=== PATIENT | female | born 1985 | race Asian ===

== ENCOUNTER 2019-03-06 05:17 | Inpatient (IN) | payer BC ==
[2019-03-06] MEDS ORDERED: Lactated Ringers 1000 ML Bag* 1,000 ML IV ONE (06:04)
--- NOTE | 2019-03-06 06:17 | HP ---
General Information - Reason for Visit IUP at 39-10/22 with ruptured membranes in early labor, GBS + - General Information Maternal Age: 33 Grav: 1 Para: 0 SAB: 0 IEA: 0 Estimated Due Date: 03/08/19 Determined By: LMP Gestational Age in Weeks/Days: 39-57 Maternal Blood Type and Rh: O Positive - Results this Serology/RPR Result: Non-Reactive Rubella Result: Immune HBsAg Result: Negative HIV Result: Negative GBS Culture Result: Positive Past Medical History Delivery History: See Records Delivery History Comment: Primip Pertinent Past Medical History: Non-Contributory Pertinent Past Surgical History: None Pertinent Family History: Non-Contributory - Antepartal Records Antepartal Records: Reviewed, Complicated by: - GBS+ Review of Systems Constitutional: Uncomfortable - with UCs CV Complaint: No Respiratory: Shortness of Breath: No Gastrointestinal: No Nausea/Vomiting, Normal Bowel Movement Genitourinary: Leaking Fluid - ROM+ positive, No Dysuria, No Bleeding Musculoskeletal: Contractions Neurological: No Headache, No Visual Changes Movement: Normal Exam Allergies/Adverse Reactions: Allergies No Known Allergies Allergy (Verified 03/06/19 05:39) Vital Signs 03/06/19 05:57 Temperature 98.7 F Pulse Rate 93 Respiratory 20 Rate Blood Pressure 118/79 (mmHg) O2 Sat by Pulse 100 Oximetry Lab Values - Entire Visit: Laboratory Tests 03/06/19 05:35 Vag Amniotic Fld Detect Positive - Measurements Height: 5 ft 2 in Weight: 142 lb Weight in lbs: 142.796812 Body Mass Index (BMI): 25.9 Pre- Weight: 100 lb Weight Gained This : 42 lbs and 0 ozs - Exam Breast: Breast Exam Deferred CVA: No CVA Tenderness Extremities: No Edema Heart: Normal Rhythm/Heart Sounds HEENT: No Significant Findings Lungs: Clear Bilaterally Rectal: Rectal Exam Deferred Reflexes: DTR 2+ Thyroid: No Thyromegaly - Abdominal Exam Abdomen Exam: Non-Tender, Fundal Height Consistent with Dates - Ultrasound/Biophysical Profile Ultrasound Status: Not Done Targeted Exam Findings See L&D Outpatient Visit Provider Note for Findings: N/A Estimated Weight: EFW 7lbs by Lars Cervical Exam: 1cm, 2cm Effacement: 70% Station: -1 Presenting Part: Vertex Membrane Status: Leaking Amniotic Fluid Evaluation: Positive ROM Plus Sterile Speculum Exam: Not done Bleeding/Discharge: Bloody Show EFM Findings - External Monitor Findings Baseline Heart Rate: 130 External Monitor Findings: Accelerations Present, No Pattern of Variable or Late Decelerations, Variability Moderate, Baseline Stable External Monitor Findings Comment: No evidence of metabolic acidemia Contractions: Regular, Moderate Contraction Frequency: q 2-5 Assessment/Plan - Assessment IUP at 39-5/7 in latent labor with ruptured membranes No evidence of metabolic acidemia GBS + - Obstetrical Risk Factors Obstetrical Risk Factors: GBS Positive - Plan Plan: Admit - Anticipate Vaginal Delivery Plan Comment: Counseled for antibiotic prophylaxis in labor for GBS. Pt and FOB agree. Will continue to monitor for now in presence of increasing strength and frequency of UCs. Advised if no onset of active labor in several hours will recommend labor augmentation with IV pitocin in presence of GBS. Pt and FOB agree. Report to Rea Garcia CNM who will be assuming care at 0800 - Date/Time of Admission Date of Admission: 03/06/19 Time of Admission: 06:04
[2019-03-06] MEDS ORDERED: Penicillin G Potassium IV* 5,000,000 UNITS in NS 0.9% 100 ML* 100 ML IVPB ONE (06:30)
[2019-03-06 06:38] LABS: ABS Eosinophils 0.1 10^3/ul (0-0.6); ABS Lymphocytes 2.1 10^3/ul (1.0-4.8); ABS Monocytes 0.7 10^3/ul (0-0.8); ABS Neutrophils 7.1 10^3/ul (1.5-7.7); Eosinophil % 0.5 %; Hematocrit 37 % (35-47); Hemoglobin 12.6 g/dL (12.0-16.0); Lymphocyte % 20.8 %; Mean Corpuscular HGB Conc 34 g/dL (31-36); Mean Corpuscular Hemoglobin 33 pg (27-31); Mean Corpuscular Volume 95 fL (80-97); Mean Platelet Volume 8.6 fL (7.4-10.4); Nucleated Red Blood Cells % 0.1; Platelet Count 191 10^3/uL (150-450); Red Blood Count 3.85 10^6 /uL (3.70-4.87); Red Cell Distribution Width 15 % (10-15)
[2019-03-06 06:58] LABS: Urine Benzodiazepine Screen None Detected (None Detect); Urine Opiates Screen None Detected (None Detect)
--- NOTE | 2019-03-06 08:30 | PN ---
Progress Note - Progress Note Date of Service: 03/06/19 Note: S: Reports contractions still continuing, wincing through them but bearable for now O: B/P: 115/69, P: 85, T: 98.7 FHR: 140s by intermittent auscultation UCs: q 3-5 min, mild to palpation VE: 1.5/70/-1. Small bloody show and clear fluid ABX x 1 for GBS prophylaxis A: IUP at 39 5/7 weeks No evidence of metabolic acidemia GBS positive P: Discussed starting IV pitocin after breakfast, PARQ discussion and Renetta agrees to trial Continue GBS prophylaxis per protocol Temperatures q2h Reassess PRN Anticipate SVB
[2019-03-06] MEDS: Oxytocin in LR* 20 UNITS/1,000 ML BAG IVPB SCH (09:14)
[2019-03-06] MEDS: Penicillin G Potassium IV* 2,500,000 UNITS in NS 0.9% 100 ML* 100 ML IVPB SCH ×4 (11:02→23:09)
--- NOTE | 2019-03-06 12:42 | PN ---
Progress Note - Progress Note Date of Service: 03/06/19 Note: S: Resting in bed, feels UCs are about the same strength as before O: B/P 116/70, P: 87, R: 18, T: 99.0 FHR: baseline 135, moderate variability, +accelerations, no decelerations UCs: q2-6 min, mild to palpation VE deferred, clear fluid Pitocin at 8 mu/min A: IUP at 39 5/7 weeks Category I FHR, no evidence of metabolic acidemia P: Continue to titrate Pitocin per protocol Continue prophylaxis for GBS Encouraged ambulation and position changes, ball Reassess PRN Anticipate SVB
[2019-03-06] MEDS ORDERED: Sodium Citrate/Citric Acid* 15 ML UDC PO ONE (18:36)
[2019-03-06] MEDS ORDERED: Morphine PF AMP (0.5MG/ML)* 5 MG/10 ML AMP ONE (18:54)
[2019-03-06] MEDS ORDERED: OXYTOCIN* 10 UNITS/ML 1 ML VIAL ONE (18:57)
[2019-03-06] MEDS ORDERED: Ketorolac INJ* 30 MG/ML 1 ML VIAL ONE (18:57)
[2019-03-06] MEDS ORDERED: Phenylephrine 40 MCG/ML SYRINGE ONE (18:57)
[2019-03-06] MEDS ORDERED: Ondansetron INJ* 2 MG/ML VIAL ONE (18:57)
[2019-03-06] MEDS ORDERED: Nalbuphine* 10 MG/ML 1 ML VIAL IV PRN ×3 (19:35→23:16)
[2019-03-06] MEDS ORDERED: Promethazine INJ(RESTRICTED)* 25 MG/ML 1 ML VIAL IV PRN (19:35)
--- NOTE | 2019-03-06 19:35 | PN ---
Progress Note - Progress Note Date of Service: 03/06/19 Note: S: Contractions have gotten stronger, reports a larger gush of fluid followed by increased discomfort. Wondering about pain management options. O: B/P: 108/65, P: 72, R: 18, T: 98.5 FHR: baseline 140, moderate variability, +accelerations, two decelerations UCs: q3-5 min, mild-moderate to palpation VE: 2/80/-2 (checked at 1700) A: IUP at 39 5/7 weeks Doubt metabolic acidemia GBS positive P: Discussed nubain/phenergan for therapeutic rest Continue GBS prophylaxis per protocol and q2h temps Reassess PRN Anticipate SVB
[2019-03-06] MEDS ORDERED: EPHEDrine (Pressors)* 50 MG/ML VIAL ONE (19:51)
[2019-03-06] MEDS ORDERED: DiMENhydriNATE IV* 50 MG/ML VIAL ONE (20:20)
[2019-03-06] MEDS ORDERED: Acetaminophen IV 1GM/100ML * 1,000 MG/100 ML VIAL IVPB ONE (20:21)
[2019-03-06] MEDS ORDERED: Naloxone* 0.4 MG/ML 1 ML VIAL IV PRN ×2 (20:21→20:22)
[2019-03-06] MEDS ORDERED: DiMENhydriNATE IV* 50 MG/ML VIAL IV PUSH PRN (20:21)
[2019-03-06] MEDS ORDERED: HYDROmorphone INJ1* 1 MG/ML SYRINGE IV PRN (20:21)
[2019-03-06] MEDS ORDERED: Ondansetron INJ* 2 MG/ML VIAL IV PRN (20:22)
[2019-03-06] MEDS ORDERED: HYDROmorphone INJ* 0.5 MG/0.5 ML SYRINGE IV PRN (21:00)
--- NOTE | 2019-03-06 23:04 | PN ---
Progress Note - Progress Note Date of Service: 03/06/19 Note: S: Feeling more uncomfortable, breathing through contractions O: B/P: 108/65, P: 72, T: 98.5 FHR: 130s by intermittent auscultation UCs: q 4-5 min, mild-moderate to palpation VE deferred ROM x 18.5 hr A: IUP at 39 5/7 weeks No evidence of metabolic acidemia P: Discussed options for pain management, she declines at this time Reassess PRN Anticipate SVB
[2019-03-07] MEDS ORDERED: Ketorolac INJ* 30 MG/ML 1 ML VIAL IV SCH (01:30)
[2019-03-07] MEDS: Penicillin G Potassium IV* 2,500,000 UNITS in NS 0.9% 100 ML* 100 ML IVPB SCH ×4 (03:09→15:14)
--- NOTE | 2019-03-07 04:10 | PN ---
Progress Note - Progress Note Date of Service: 03/07/19 Note: S: Called to bedside as Renetta reports being "in constant pain" and desires cervical exam O: B/P: 108/65, P: 72, R: 20, T: 98.7 FHR: baseline 135, moderate variability, no accelerations, no decelerations UCs: q4-6 min, moderate, uterine irritability VE: 2.5/100/-1, clear fluid ROM x 23.5 hr A: IUP at 39 6/7 weeks no evidence of metabolic acidemia Early labor P: Discussed pain management options including nitrous oxide and epidural; Renetta declines all Pitocin re-started for inadequate labor progress Continue GBS prophylaxis per protocol Continue q2h temperatures Reassess PRN Anticipate SVB
--- NOTE | 2019-03-07 08:41 | PN ---
Progress Note - Progress Note Date of Service: 03/07/19 Note: S: Pt resting in bed. Breathing through contractions. O: B/P: 118/73, P: 94, R: 20, T: 99.8 FHR: baseline 140, moderate variability, no accelerations, no decelerations UCs: q2-4 min, moderate, coupling VE: 5/100/-1, bloody show ROM x 28 hr Pitocin@10mU A: IUP at 39 6/7 weeks no evidence of metabolic acidemia active labor P: Move rooms so pt can use tub Increase pitocin based on /maternal tolerance and contraction pattern Continue GBS prophylaxis per protocol Continue q2h temperatures Reassess PRN Anticipate SVB
[2019-03-07] MEDS ORDERED: OBEPIDURAL* 250 ML EPIDURAL ONE (10:36)
--- NOTE | 2019-03-07 10:46 | PN ---
Progress Note - Progress Note Date of Service: 03/07/19 Note: S: Pt resting in bed. Using nitrous oxide with little effect. Requesting an epidural. O: B/P: 118/68, P: 98, R: 20, T: 98 FHR: baseline 140, moderate variability, no accelerations, no decelerations UCs: q2-4 min, moderate, VE: 7/100/-1 ROM x 30 hr Pitocin@10mU A: IUP at 39 6/7 weeks no evidence of metabolic acidemia afebrile active labor P: Pitocin stable Epidural now, anesthesia aware. Continue GBS prophylaxis per protocol Continue q2h temperatures Reassess PRN Anticipate SVB
[2019-03-07] MEDS ORDERED: Nalbuphine* 10 MG/ML 1 ML VIAL IV PRN (11:28)
[2019-03-07] MEDS ORDERED: Famotidine TAB* 20 MG PO PRN (11:35)
[2019-03-07] MEDS ORDERED: Lactated Ringers 1000 ML Bag* 500 ML IV PRN ×2 (11:35)
[2019-03-07] MEDS ORDERED: Lactated Ringers 1000 ML Bag* 1,000 ML IV ONE (11:35)
[2019-03-07] MEDS ORDERED: Phenylephrine 40 MCG/ML SYRINGE IV PUSH PRN ×2 (11:35)
[2019-03-07] MEDS ORDERED: Sodium Citrate/Citric Acid* 15 ML UDC PO PRN (11:35)
[2019-03-07] MEDS ORDERED: Lactated Ringers 1000 ML Bag* 1,000 ML IV SCH ×2 (12:00→19:00)
[2019-03-07] MEDS ORDERED: OBEPIDURAL* 250 ML EPIDURAL SCH (12:00)
[2019-03-07] MEDS: Oxytocin in LR* 20 UNITS/1,000 ML BAG IVPB SCH (12:11)
[2019-03-07] MEDS ORDERED: Ondansetron INJ* 2 MG/ML VIAL IV PRN (13:52)
[2019-03-07] MEDS ORDERED: Ondansetron INJ* 2 MG/ML VIAL ONE (13:55)
--- NOTE | 2019-03-07 14:15 | PN ---
Progress Note - Progress Note Date of Service: 03/07/19 Note: S: Pt resting in bed. Pain much improved with epidural. Feeling shaky and pressure. O: FHR: baseline 150, moderate variability, no accelerations, no decelerations UCs: palpate strong, good resting tone VE: 9/100/-1 ROM x 32hr Pitocin@10mU A: IUP at 39 6/7 weeks no evidence of metabolic acidemia active labor P: Pitocin stable Continue GBS prophylaxis per protocol Continue q2h temperatures Reassess PRN Anticipate SVB
--- NOTE | 2019-03-07 14:17 | PN ---
Progress Note - Progress Note Date of Service: 03/07/19 Note: S: Pt resting in bed. Pt feeling increased pressure. Also reports nausea. O: FHR: baseline 150, moderate variability, no accelerations, no decelerations UCs: palpate strong, good resting tone VE: 9.5/100/-1, anterior lip Pitocin@10mU A: IUP at 39 6/7 weeks no evidence of metabolic acidemia active labor P: Pitocin stable Continue GBS prophylaxis per protocol Continue q2h temperatures Reassess 30 mins Anticipate SVB
[2019-03-07] MEDS ORDERED: Bupivacaine 0.25% SDV PF* 10 ML VIAL INJ ONE (16:55)
[2019-03-07] MEDS ORDERED: Glycerin ADULT SUPP PR PRN (18:01)
[2019-03-07] MEDS ORDERED: Acetaminophen TAB* 325 MG PO PRN (18:01)
[2019-03-07] MEDS ORDERED: Misoprostol TAB* 200 MCG PR ONE (18:01)
[2019-03-07] MEDS ORDERED: Acetaminophen TAB* 325 MG ONE (18:15)
[2019-03-07] MEDS ORDERED: Ibuprofen TAB* 600 MG ONE (18:17)
[2019-03-07] MEDS: Ibuprofen TAB* 600 MG PO SCH (18:19)
[2019-03-07] MEDS ORDERED: Oxytocin in LR* 20 UNITS/1,000 ML BAG IVPB SCH (19:00)
[2019-03-07] MEDS ORDERED: Ammonia Inhalant* 1 EA AMP ONE ×2 (20:57→22:46)
[2019-03-07] MEDS ORDERED: Simethicone TAB* 80 MG TAB.CHEW PO SCH (21:00)
[2019-03-07 21:18] LABS: Hematocrit 24 % (35-47); Hemoglobin 8.1 g/dL (12.0-16.0); Mean Corpuscular HGB Conc 34 g/dL (31-36); Mean Corpuscular Hemoglobin 32 pg (27-31); Mean Corpuscular Volume 96 fL (80-97); Platelet Count 163 10^3/uL (150-450); Red Blood Count 2.51 10^6 /uL (3.70-4.87); Red Cell Distribution Width 15 % (10-15); White Blood Count 21.7 10^3/uL (3.5-10.8)
[2019-03-07] MEDS: Witch Hazel PAD* JAR TOPICAL PRN (21:25)
[2019-03-07] MEDS: Dibucaine 1% 28.35 GM TUBE PR PRN (21:25)
[2019-03-07 21:51] LABS: ABS Lymphocytes 2.2 10^3/ul (1.0-4.8); ABS Monocytes 1.9 10^3/ul (0-0.8); ABS Neutrophils 17.5 10^3/ul (1.5-7.7); Lymphocyte % 10.3 %
--- NOTE | 2019-03-07 23:04 | PROCNOTE ---
[facility] OB: Delivery Note - Delivery A Date of : 03/07/19 Time of : 16:50 [place] Sex: Male Weight at : 4070 lb Score 1 Minute: 1 Score 5 Minutes: 9 Gestational Age in Weeks and Days at Delivery: 39 Weeks and 6 Days Delivery Method: Spontaneous Vaginal Labor: Spontaneous Did Patient attempt ?: N/A, No Previous Amniotic Fluid: Clear Estimated Blood Loss: 1,000 Anesthesia/Analgesia: IM/IV, CEI for Labor, Nitrous-Labor Delivered By: Chely Moss - Nursery Level of Nursery: Regular/Bedside - Perineum Perineal Injury: Midline Episiotomy, 2nd Degree Perineal Injury Comment: Repaired in the usual fashion using 3-0 rapide with CEI infusing. Perineal Repair: By Delivering Practioner - Events Delivery Events of Note: Pitocin During Labor, Shoulder Dystocia, Supplemental O2 to Mother, Maternal Temperature during Labor, Full Course of Antibiotics, Post- Bleeding - Meds Given - Risk for Falls Delivered OB Patient- Risk for Falls: Heavy Bleeding Fall Risk: Patient is at High Risk for Falls - Additional Delivery Notes Additional Delivery Notes: 33 yo G1, now P1 at 39+3 weeks admitted to L&D for PROM at 0430 on 03/06/19. In the absence of labor contractions, labor was induced with Pitocin. Pt progressed to complete and complete with CEI infusing on 03/07/19. Pt began pushing spontaneously at 1450. After 2 hours of pushing, with strong maternal effort, the head was delivered OA to ADI. A nuchal cord was identified and reduced on the perineum. Shoulder dystocia was diagnosed when shoulders failed to deliver following restitution, gentle traction, and strong maternal pushing effort. RN activated emergency response on the unit. Meg Spencer MD - OB and Marta Almonte MD - Plant Ecologist were called and notified of events. The following maneuvers were performed: Mignon, suprapubic pressure, midline episiotomy, attempted removal of the posterior arm, rotation of the shoulder, and rotation to hands and knees where the posterior arm was successfully removed and the body delivered. The time lapsed from delivery of the head to delivery of the body was 2 minutes 57 seconds. Denisha Corona LM was present at the bedside and assisted with delivery. Cord was immediately cut and clamped and baby was taken to the warmer. 's were 1 and 9. After baby was stabilized, he was returned to mother's chest for [id number]. Spontaneous dorian delivery of intact placenta noted at 1655. Brisk bleeding followed. Fluids were initiated, followed by Pitocin and misoprostol. Fundus firmed with massage/meds and bleeding ceased. EBL 1000 mL. The midline episiotomy with extension was repaired in the usual fashion by the delivering provider. Normal anatomy restored, hemostasis achieved. Infant . Mother and infant in stable condition at time of note.
[2019-03-08] MEDS: Ibuprofen TAB* 600 MG PO SCH ×2 (09:11→21:34)
[2019-03-08] MEDS: Ferrous Gluconate TAB* 324 MG TAB PO SCH ×2 (09:12→21:34)
[2019-03-08] MEDS: Docusate CAP* 100 MG PO SCH ×3 (09:12→21:34)
[2019-03-08 10:35] LABS: ABS Eosinophils 0.1 10^3/ul (0-0.6); ABS Lymphocytes 2.3 10^3/ul (1.0-4.8); ABS Neutrophils 14.3 10^3/ul (1.5-7.7); Eosinophil % 0.3 %; Hematocrit 20 % (35-47); Hemoglobin 6.7 g/dL (12.0-16.0); Lymphocyte % 12.9 %; Mean Corpuscular HGB Conc 34 g/dL (31-36); Mean Corpuscular Hemoglobin 33 pg (27-31); Mean Corpuscular Volume 97 fL (80-97); Mean Platelet Volume 8.4 fL (7.4-10.4); Platelet Count 162 10^3/uL (150-450); Red Blood Count 2.08 10^6 /uL (3.70-4.87); Red Cell Distribution Width 15 % (10-15); White Blood Count 17.7 10^3/uL (3.5-10.8)
--- NOTE | 2019-03-08 11:22 | PN ---
Progress Note - Progress Note Date of Service: 03/08/19 Note: Pt reports feeling well today, denies dizziness/ faintness, ambulating without difficulty. , reports some perineal tenderness, but manageable. FF @ 1cm below umbilicus, small rubra lochia. Pt w/ Hgb/ Hct 6.7/20. Vital signs stable. Recommend blood transfusion. After discussion of risks and benefits, pt agrees to transfusion. Will transfuse 1 unit PRBCs, recheck CBC after 6 hours.
[2019-03-08] MEDS: Dibucaine 1% 28.35 GM TUBE PR PRN (16:08)
[2019-03-08 19:58] LABS: ABS Basophils 0.1 10^3/ul (0-0.2); ABS Eosinophils 0.1 10^3/ul (0-0.6); ABS Monocytes 1.3 10^3/ul (0-0.8); ABS Neutrophils 11.7 10^3/ul (1.5-7.7); Eosinophil % 0.6 %; Hematocrit 20 % (35-47); Hemoglobin 6.8 g/dL (12.0-16.0); Lymphocyte % 18.4 %; Mean Corpuscular HGB Conc 34 g/dL (31-36); Mean Corpuscular Hemoglobin 33 pg (27-31); Mean Corpuscular Volume 95 fL (80-97); Mean Platelet Volume 7.9 fL (7.4-10.4); Nucleated Red Blood Cells % 0.1; Platelet Count 151 10^3/uL (150-450); Red Blood Count 2.08 10^6 /uL (3.70-4.87); Red Cell Distribution Width 15 % (10-15); White Blood Count 16.1 10^3/uL (3.5-10.8)
--- NOTE | 2019-03-08 21:19 | PN ---
Progress Note - Progress Note Date of Service: 03/08/19 Note: 6 hrs following transfusion pt's Hgb/ Hct went from 6.7/20 to 6.8/ 20. Pt counseled on result, recommend second unit PRBCs. Pt in agreement. Order placed to transfuse second unit. Pt reports feeling well, improved since first unit. VSS. Tolerated first transfusion well.
[2019-03-09] MEDS: Docusate CAP* 100 MG PO SCH ×2 (04:00→09:18)
[2019-03-09 06:55] LABS: Hematocrit 23 % (35-47); Hemoglobin 7.9 g/dL (12.0-16.0); Mean Corpuscular HGB Conc 34 g/dL (31-36); Mean Corpuscular Hemoglobin 32 pg (27-31); Mean Corpuscular Volume 94 fL (80-97); Mean Platelet Volume 8.2 fL (7.4-10.4); Platelet Count 154 10^3/uL (150-450); Red Blood Count 2.46 10^6 /uL (3.70-4.87); Red Cell Distribution Width 15 % (10-15); White Blood Count 13.9 10^3/uL (3.5-10.8)
[2019-03-09] MEDS: Ibuprofen TAB* 600 MG PO SCH (07:39)
[2019-03-09 08:09] VITALS: BP 112/64
[2019-03-09] MEDS: Ferrous Gluconate TAB* 324 MG TAB PO SCH (09:18)
[2019-03-09] MEDS: Witch Hazel PAD* JAR TOPICAL PRN (09:18)
--- NOTE | 2019-03-09 11:35 | PTEDU ---
Patient Name: MICHELLE FOUNTAIN MICHELLE FOUNTAIN selected video: Follow Me Mum: [employer] [facility] to view on 019 at 11:33:08 AM [id number]
[2019-03-09 11:47] LABS: Hematocrit 26 % (35-47); Hemoglobin 8.6 g/dL (12.0-16.0); Mean Corpuscular HGB Conc 34 g/dL (31-36); Mean Corpuscular Hemoglobin 32 pg (27-31); Mean Corpuscular Volume 94 fL (80-97); Mean Platelet Volume 7.6 fL (7.4-10.4); Platelet Count 184 10^3/uL (150-450); Red Blood Count 2.71 10^6 /uL (3.70-4.87); Red Cell Distribution Width 15 % (10-15); White Blood Count 14.9 10^3/uL (3.5-10.8)
== END 2019-03-09 13:48 | disposition home or self-care (01) | DRG 560 ==
LOC: MCHOBOUT 05:17 → MCHOB 06:04
PROVIDERS: ADMIT Midwife; ATTEND Advanced Practice Midwife
PROC: 10E0XZZ Delivery of Products of Conception, External Approach (ICD-10-PCS; principal; 2019-03-07)
PROC: 0W8NXZZ Division of Female Perineum, External Approach (ICD-10-PCS; 2019-03-07)
PROC: 0KQM0ZZ Repair Perineum Muscle, Open Approach (ICD-10-PCS; 2019-03-07)
PROC: 30233N1 Transfusion of Nonautologous Red Blood Cells into Peripheral Vein, Percutaneous Approach (ICD-10-PCS; 2019-03-07)
DX: O99.824 Streptococcus B carrier state complicating childbirth (principal); D62 Acute posthemorrhagic anemia; Z37.0 Single live birth; O70.1 Second degree perineal laceration during delivery; O77.0 Labor and delivery complicated by meconium in amniotic fluid; O69.81X0 Labor and delivery complicated by cord around neck, without compression, not applicable or unspecified; O66.0 Obstructed labor due to shoulder dystocia; O72.0 Third-stage hemorrhage; O90.81 Anemia of the puerperium; Z3A.39 39 weeks gestation of pregnancy
CPT/HCPCS: 36415; 80307; 83020; 84112; 85025; 85027; 86850; 86900; 86901; 86922; 88307; A9270-GY; J1240; J1885; J2300; J2405; J2540; J2550; J2590; J3490; P9040